=== PATIENT | male | born 1970 | race Caucasian/White ===

== ENCOUNTER 2024-03-20 16:22 | Emergency (ER) | payer OTHER ==
[~2024-03-20] VITALS: Ht 177.8 cm; Wt 103.8 kg
[2024-03-20 17:38] VITALS: BP 142/70
== END 2024-03-20 17:39 | disposition home or self-care (01) ==
LOC: ED 16:22
DX: S80.812A Abrasion, left lower leg, initial encounter (principal); V43.52XA Car driver injured in collision with other type car in traffic accident, initial encounter
CPT/HCPCS: 99283